=== PATIENT | female | born 1995 | race Caucasian/White ===

== ENCOUNTER → 2019-07-08 13:22 | Outpatient (CLI) | payer MEDICAID, SELFPAY ==
--- NOTE | 2019-07-08 13:28 | US_ITS ---
PROCEDURE: US OB <= 14 WEEKS FETUS CLINICAL INDICATION: dates COMPARISON: No exams were available for comparison FINDINGS: An intrauterine gestational sac is present with a pole with a crown-rump length of 1.19 cm correlating to gestational age of seven weeks 3 days. heart tones are present with an FHR of 151 bpm. Yolk sac is noted. There is a 3.3 cm right ovarian cyst. The uterus is retroverted. IMPRESSION: Live IUP at 7 weeks 3 days Estimated due date by Ultrasound is 02/21/2020 Dictated by: Checo Padilla MD 07/08/2019 18:38 Electronically signed by Checo Padilla MD in [place] 07/08/2019 18:38
== END ==
PROVIDERS: PCP Nurse Practitioner Family; Visit Provider Obstetrics & Gynecology
DX: O26.841 Uterine size-date discrepancy, first trimester (principal)
CPT/HCPCS: 36415; 76801; 84702

== ENCOUNTER → 2019-07-08 14:02 | Outpatient (CLI) | payer MEDICAID, SELFPAY | PROVIDERS: Visit Provider Obstetrics & Gynecology | DX: Z34.90 Encounter for supervision of normal pregnancy, unspecified, unspecified trimester (principal) | CPT/HCPCS: 36415; 84702 ==

== ENCOUNTER → 2019-09-14 09:40 | Outpatient (CLI) | payer MEDICAID, SELFPAY ==
[2019-09-14 10:35] LABS: Basophils % 0.3 % (0.1-2.0); Eosinophils # 0.3 K/mm3 (0.0-0.4); Eosinophils % 1.9 % (0.1-12.0); Hematocrit 38.6 % (37.0-47.0); Hemoglobin 12.9 g/dL (12.2-16.2); Lymphocytes # 2.3 K/mm3 (0.7-4.5); Lymphocytes % 14.8 % (10-50); Mean Corpuscular HGB Conc 33.5 g/dL (31.8-35.4); Mean Corpuscular Hemoglobin 29.1 pg (27.0-31.2); Mean Platelet Volume 9.1 fl (7.4-10.4); Monocytes # 0.9 K/mm3 (0.1-1.0); Monocytes % 5.7 % (1.7-9.3); Neutrophils % 77.3 % (37.0-80.0); Platelet Count 303 K/mm3 (142-424); Red Blood Count 4.43 M/mm3 (4.20-5.40); Red Cell Distribution Width 13.2 % (11.5-17.5); White Blood Count 15.6 K/mm3 (4.8-10.8)
[2019-09-14 10:40] LABS: MANUAL DIFFERENTIAL MANUAL DIFFERENTIAL (MANUAL DIFF)
[2019-09-14 11:12] LABS: Eosinophils % 2 % (0-3); Lymphocytes % 14 % (10-50); Monocytes % 3 % (2-9); Neutrophils % 81 % (42-76); Platelet Estimate Normal; RBC Morphology Normal; Total Cells Counted 100
[2019-09-15 10:29] LABS: HIV Screen 4th Generation wRfx Non Reactive (Non Reactive); Hepatitis B Surface Antigen Negative (Negative); Hepatitis C Antibody <0.1 s/co ratio (0.0-0.9); Rubella Antibodies, IgG 3.62 index (Immune >0.99)
[2019-09-15 14:37] LABS: Rapid Plasma Reagin Ab Titer Non Reactive (NonRea<1:1)
== END ==
PROVIDERS: Visit Provider Obstetrics & Gynecology
DX: Z34.90 Encounter for supervision of normal pregnancy, unspecified, unspecified trimester (principal); Z3A.12 12 weeks gestation of pregnancy
CPT/HCPCS: 36415; 85007; 85025; 86592; 86703; 86762; 86850; 87340; 87380; G0432

== ENCOUNTER → 2019-10-04 09:03 | Outpatient (CLI) | payer MEDICAID, SELFPAY ==
--- NOTE | 2019-10-04 09:04 | US_ITS ---
PROCEDURE: US OB /MATERNAL DETAIL CLINICAL INDICATION: US OB Complete Anatomy scan COMPARISON: US OB <= 14 WEEKS FETUS from 07/08/2019 FINDINGS: There is a single live fetus which is in breech presentation. heart and body motion noted. The cervix is closed and measures 3.6 cm. There is average appearing amount of amniotic fluid. Placenta is posterior and grade 1. Complete survey performed and was unremarkable on the submitted images as in PACS. No discrete anomalies identified on survey imaging by technologist. Active fetus. Three-vessel cord with satisfactory umbilical cord insertion. 4- chamber heart noted. Survey of brain & ventricles Unremarkable. Face and neck survey unremarkable. Diaphragm and chest views unremarkable. Abdomen: Both kidneys noted with minimal pyelectasis at 4 mm bilaterally.. Stomach noted and satisfactory. Spine: Survey of the spine satisfactory with no anomalies identified nor imaged. Both arms and legs noted. Amniotic Fluid: Adequate. Maternal adnexa: No significant findings. Measurements: Average ultrasound age 19weeks 6days. Gestational Age 20 weeks 0 days Estimated due date by ultrasound age 0702/22/2020. Estimated weight 340g BPD = 19weeks 2days OFD = 20 weeks 4 days HC = 19weeks 2days AC = 20weeks 5days FL = 20weeks 1day Growth Percentile= 58% Heart Rate = 152bpm Cerebellum = 20weeks 4days Humerus = 20weeks 2days HC/AC is 1.07 CI is 0.72 FL/BPD is 0.74 FL/AC is 0.21 IMPRESSION: There is a single live fetus which is in breech presentation. heart body motion noted. All parameters correlate with no obvious anomalies. Average ultrasound age is 19 weeks 6 days. Please see above for details. There is mild bilateral pyelectasis is of the collecting systems. This is nonspecific and may represent an incidental finding. Follow-up may confirm stability. Dictated by: Checo Padilla MD 10/04/2019 14:35 Electronically signed by Checo Padilla MD in [place] 10/04/2019 14:35
== END ==
PROVIDERS: PCP Nurse Practitioner Family; Visit Provider Obstetrics & Gynecology
DX: Z36.0 Encounter for antenatal screening for chromosomal anomalies (principal)
CPT/HCPCS: 76811

== ENCOUNTER → 2019-11-29 16:21 | Outpatient (CLI) | payer MEDICAID, SELFPAY ==
[2019-11-29 17:12] LABS: Barbiturates Screen,Urine Negative ng/ml (<200)
[2019-11-29 17:13] LABS: Benzodiazepines Screen,Urine Negative ng/ml (<200)
[2019-11-29 17:14] LABS: Amphetamine/Metha Screen,Urine Negative ng/ml (<1000); Methadone Screen,Urine Negative ng/ml (<300)
[2019-11-29 17:15] LABS: Cannabinoid Screen,Urine Negative ng/ml (<50)
[2019-11-29 17:16] LABS: Cocaine Screen,Urine Negative ng/ml (<300); Opiate Screen,Urine Negative ng/ml (<300)
[2019-11-29 17:17] LABS: Phencyclidine Screen,Urine Negative ng/ml (<25)
== END ==
PROVIDERS: Visit Provider Obstetrics & Gynecology
DX: Z34.90 Encounter for supervision of normal pregnancy, unspecified, unspecified trimester (principal)
CPT/HCPCS: 80305

== ENCOUNTER → 2019-12-01 12:58 | Outpatient (CLI) | payer MEDICAID, SELFPAY ==
--- NOTE | 2019-12-01 12:58 | US_ITS ---
PROCEDURE: US OB FOLLOW UP CLINICAL INDICATION: Q62.0 Follow-up pyelectasis COMPARISON: US OB /MATERNAL DETAIL from 10/04/2019 FINDINGS: There is a single live fetus present in cephalic presentation. Cervix is closed and measures 3.5 cm transabdominal. The placenta is posterior and grade 1-2. OLGA 16 cm. Average ultrasound age is 28 weeks and 2 days with an estimated weight 1191 g which is 34 percentile. BPD 28 weeks 2 days, OFD 28 weeks 2 days, HC 28 weeks 0 days, AC 28 weeks 2 days, FL 28 weeks 2 days. There is minimal pyelectasis with the renal collecting system measuring 3 mm on each side. This is not significantly changed. IMPRESSION: Live IUP at 28 weeks 2 days with normal amniotic fluid index of 16 cm. All parameters correlate. There remains minimal pyelectasis not significantly changed. The placenta is posterior and grade 1-2. Dictated by: Checo Padilla MD 12/01/2019 16:57 Electronically signed by Checo Padilla MD in [place] 12/01/2019 16:57
== END ==
PROVIDERS: PCP Nurse Practitioner Family; Visit Provider Obstetrics & Gynecology
DX: O99.89 Other specified diseases and conditions complicating pregnancy, childbirth and the puerperium (principal); N13.30 Unspecified hydronephrosis; Z3A.28 28 weeks gestation of pregnancy
CPT/HCPCS: 76816

== ENCOUNTER → 2020-01-17 14:48 | Outpatient (CLI) | payer MEDICAID, SELFPAY | PROVIDERS: Visit Provider Obstetrics & Gynecology | DX: Z34.90 Encounter for supervision of normal pregnancy, unspecified, unspecified trimester (principal) | CPT/HCPCS: 86403 ==

== ENCOUNTER 2020-01-24 14:47 | Outpatient (CLI) | payer MEDICAID, SELFPAY ==
[2020-01-24 14:54] VITALS: BMI 33.0
[2020-01-24 15:09] VITALS: BP 139/85; PULSE 135; RESP 20; TEMP 37.1; O2SAT 97; BMI 33.0
[2020-01-24 15:12] LABS: Microscopic, Urine URINE MICROSCOPIC (MICROSCOPIC)
[2020-01-24 15:35] LABS: Appearance,Urine CLEAR (Clear); Bilirubin,Urine Negative (Negative); Blood, Urine 3+ (Negative); Color,Urine YELLOW (Yellow); Glucose,Urine (UA) Negative (Negative); Ketones,Urine TRACE (Negative); Leukocyte Esterase,Urine 2+ (Negative); Nitrate,Urine Negative (Negative); PH,Urine 7.5 (5.0-8.5); Protein,Urine TRACE (Negative)
[2020-01-24 18:43] LABS: Barbiturates Screen,Urine Negative ng/ml (<200); Benzodiazepines Screen,Urine Negative ng/ml (<200)
[2020-01-24 18:44] LABS: Amphetamine/Metha Screen,Urine Negative ng/ml (<1000)
[2020-01-24 18:45] LABS: Cannabinoid Screen,Urine Negative ng/ml (<50); Cocaine Screen,Urine Negative ng/ml (<300)
[2020-01-24 18:46] LABS: Methadone Screen,Urine Negative ng/ml (<300); Opiate Screen,Urine Negative ng/ml (<300)
[2020-01-24 18:47] LABS: Phencyclidine Screen,Urine Negative ng/ml (<25)
[2020-01-24 19:12] LABS: RBC,Urine Occasional #/hpf (0-3)
[2020-01-24 19:13] LABS: Bacteria,Urine 1+ /lpf
== END 2020-01-24 16:25 | disposition home or self-care (01) ==
LOC: OBOUT 14:48 → OB 14:49
PROVIDERS: PCP Nurse Practitioner Family; Visit Provider Obstetrics & Gynecology
DX: Z34.90 Encounter for supervision of normal pregnancy, unspecified, unspecified trimester (principal)
CPT/HCPCS: 59025; 80305; 81001; 87086; 96365; G0463

== ENCOUNTER 2020-02-15 08:58 | Outpatient (CLI) | payer MEDICAID, SELFPAY ==
[2020-02-15 09:14] VITALS: BMI 33.9
[2020-02-15 09:23] LABS: Microscopic, Urine URINE MICROSCOPIC (MICROSCOPIC)
[2020-02-15 09:27] LABS: Appearance,Urine CLEAR (Clear); Bilirubin,Urine Negative (Negative); Blood, Urine Negative (Negative); Color,Urine YELLOW (Yellow); Glucose,Urine (UA) Negative (Negative); Ketones,Urine Negative (Negative); Leukocyte Esterase,Urine 2+ (Negative); Nitrate,Urine Negative (Negative); Protein,Urine Negative (Negative); Specific Gravity, Urine 1.015 (1.005-1.030)
[2020-02-15 09:34] VITALS: BP 128/75; PULSE 104; RESP 18; TEMP 36.6; O2SAT 97; BMI 33.9
[2020-02-15 09:36] LABS: Amphetamine/Metha Screen,Urine Negative ng/ml (<1000)
[2020-02-15 09:37] LABS: Barbiturates Screen,Urine Negative ng/ml (<200)
[2020-02-15 09:38] LABS: Benzodiazepines Screen,Urine Negative ng/ml (<200); Cannabinoid Screen,Urine Negative ng/ml (<50)
[2020-02-15 09:39] LABS: Bacteria,Urine 2+ /lpf; Cocaine Screen,Urine Negative ng/ml (<300)
[2020-02-15 09:40] LABS: Methadone Screen,Urine Negative ng/ml (<300); Opiate Screen,Urine Negative ng/ml (<300)
[2020-02-15 09:41] LABS: Phencyclidine Screen,Urine Negative ng/ml (<25)
== END 2020-02-15 12:00 | disposition home or self-care (01) ==
LOC: OBOUT 08:59 → OB 09:00
PROVIDERS: Nurse Practitioner Obstetrics & Gynecology; Visit Provider Obstetrics & Gynecology
DX: O26.893 Other specified pregnancy related conditions, third trimester (principal); Z3A.39 39 weeks gestation of pregnancy; M54.5 Low back pain; R10.9 Unspecified abdominal pain
CPT/HCPCS: 59025; 80305; 81001; 87086; 96365; G0463; J0595

== ENCOUNTER 2020-02-16 04:14 | Inpatient (IN) | payer MEDICAID, SELFPAY ==
[2020-02-16 04:22] VITALS: BMI 30.1
[2020-02-16 04:28] VITALS: BMI 30.1
[2020-02-16 04:37] LABS: Basophils # 0.1 K/mm3 (0-0.2); Basophils % 0.3 % (0.1-2.0); Eosinophils # 0.2 K/mm3 (0.0-0.4); Eosinophils % 0.7 % (0.1-12.0); Hematocrit 35.9 % (37.0-47.0); Hemoglobin 11.9 g/dL (12.2-16.2); Lymphocytes # 2.9 K/mm3 (0.7-4.5); Lymphocytes % 12.5 % (10-50); Mean Corpuscular HGB Conc 33.3 g/dL (31.8-35.4); Mean Corpuscular Hemoglobin 28.8 pg (27.0-31.2); Mean Corpuscular Volume 86.4 fl (81-99); Monocytes # 1.2 K/mm3 (0.1-1.0); Monocytes % 5.4 % (1.7-9.3); Neutrophils # 18.6 K/mm3 (1.8-7.8); Platelet Count 327 K/mm3 (142-424); Red Blood Count 4.15 M/mm3 (4.20-5.40); Red Cell Distribution Width 13.5 % (11.5-17.5)
[2020-02-16 04:38] LABS: MANUAL DIFFERENTIAL MANUAL DIFFERENTIAL (MANUAL DIFF)
[2020-02-16 04:55] LABS: Amphetamine/Metha Screen,Urine Negative ng/ml (<1000); Barbiturates Screen,Urine Negative ng/ml (<200)
[2020-02-16 04:56] LABS: Benzodiazepines Screen,Urine Negative ng/ml (<200)
[2020-02-16 04:57] LABS: Cannabinoid Screen,Urine Negative ng/ml (<50); Cocaine Screen,Urine Negative ng/ml (<300)
[2020-02-16 04:58] LABS: Methadone Screen,Urine Negative ng/ml (<300)
[2020-02-16 04:59] LABS: Opiate Screen,Urine Negative ng/ml (<300); Phencyclidine Screen,Urine Negative ng/ml (<25)
[2020-02-16 05:44] LABS: Lymphocytes % 11 % (10-50); Neutrophils % 87 % (42-76); Platelet Estimate Normal; Stomatocytes 1+; Total Cells Counted 100
[2020-02-16 05:53] LABS: Coronavirus 19 IgG Antibody Negative (Negative); Coronavirus 19 IgM Antibody Negative (Negative)
--- NOTE | 2020-02-16 06:09 | HMH.DN ---
- Delivery Note Delivery Date:: 02/16/20 Delivery Time:: 05:41 Anesthesia Type: None Was labor medically induced?: No Induction method: none Gestational age (weeks): 39 delivered prior to 39 weeks?: No Justification for early elective delivery:: Active Labor Infant Gender: Male at 1 minute: 7 at 5 minutes: 9 Delivery Procedure:: She is a 24-year-old 3 para 2 at 39 and 2 weeks gestational age. She came in active labor and was found to be 9 cm dilated. She rapidly progressed to full dilation and delivered spontaneously a liveborn male child at 5:41 AM on the morning of February 16, 2020. On deliver the head it was noted that there was a nuchal cord. This was reduced followed by deliver the anterior shoulder and the rest the infant's body atraumatically. The baby was vigorous and cried spontaneously. The oropharynx and nasopharynx were bulb suction. The cord was then doubly clamped and cut after 1 minute and the infant was placed on the mother's abdomen for further care. The nurses assigned Apgars of 7 at 1 minute and 9 at 5 minutes. We then obtained cord blood as well as cord pH. She received IV oxytocin using gentle traction on the cord and countertraction the fundus I was able to easily deliver the placenta intact. It had a normal three-vessel cord. She had a small right labial tear just below the clitoris and I infiltrated the area with Xylocaine. I then reapproximated the labia with 3-0 Vicryl Rapide suture in interrupted fashion. She has a positive blood, she is rubella immune and was group B streptococcus negative. She plans to breast-feed. Estimated blood loss was approximately 400 cc. Laceration:: labial Placental Delivery Description: Spontaneous
[2020-02-16 06:13] LABS: Cord Blood PH 7.36 (7.35-7.45)
[2020-02-16 07:36] VITALS: BP 136/87; PULSE 89; RESP 18; TEMP 36.7; O2SAT 97
[2020-02-16 12:00] VITALS: BP 126/83; PULSE 92; RESP 18; TEMP 36.9; O2SAT 97
[2020-02-16 16:05] VITALS: BP 110/71; PULSE 95; RESP 116; TEMP 36.9; O2SAT 98
[2020-02-16 20:30] VITALS: BP 124/77; PULSE 91; RESP 18; TEMP 37.1; O2SAT 99
[2020-02-16 23:45] VITALS: BP 123/77; PULSE 85; RESP 18; TEMP 37.2; O2SAT 96
[2020-02-17 04:00] VITALS: BP 123/77; PULSE 84; RESP 18; TEMP 36.6; O2SAT 96
[2020-02-17 07:28] LABS: Hematocrit 28.5 % (37.0-47.0); Hemoglobin 9.4 g/dL (12.2-16.2)
[2020-02-17 08:00] VITALS: BP 118/74; PULSE 84; RESP 18; TEMP 36.7; O2SAT 97
--- NOTE | 2020-02-17 09:37 | HMH.DCSUM ---
General - General Admission date:: 02/16/20 Discharge date: 02/17/20 HPI HPI: Presented in active labor with advanced dilation Precipitous vaginal delivery, uncomplicated course uneventful Tolerating regular diet, ambulating and voiding without difficulty Lochia appropriate; asymptomatic with mild anemia following delivery Desires discharge home on PPD #1 Hospital Course Rhogam Administration: Not Indicated Objective Vital signs: Temp Pulse Resp BP Pulse Ox 97.9 F 84 18 123/77 96 02/17/20 04:00 02/17/20 04:00 02/17/20 04:00 02/17/20 04:00 02/17/20 04:00 Narrative: CONSTITUTIONAL: no acute distress HEENT: mucous membranes moist PULMONARY: breathing unlabored without audible wheezes CV: no tachycardia or visible JVD; normal LE peripheral pulses ABD: soft, NT/ND, no guarding : fundus firm at/below umbilicus SKIN: no visible rash or lesions EXT: 1+ edema LEs NEURO: alert/oriented, no altered mental status PSYCH: appropriate mood and demeanor without anxiety/depression Results Labs on day of discharge: Labs from last 24 hours 02/17/20 07:05 Hgb 9.4 L Hct 28.5 L DS: Diagnosis - Discharge Diagnosis (1) Normal delivery at term Status: Acute (2) pyelectasis Status: Acute (3) Tobacco smoking affecting Status: Acute Discharge Plan - Patient Discharge Instructions ACTIVITY: Continue current activity DIET: regular diet Additional Instructions: NO HEAVY LIFTING OR STRENUOUS ACTIVITY NOTHING IN VAGINA FOR 6 WEEKS Patient Instructions: DI for Hemorrhage, Depression, DI for Labor and Delivery, Vaginal , Post Discharge Instructions - Follow up Plan Disposition: Home, Self-Group Home Medications: Home Medications Medication Instructions Recorded Confirmed Type pediatric multivitamin no.76 1 tab PO DAILY 09/14/19 02/16/20 History NIFEdipine [Procardia] 20 mg PO QID 02/16/20 02/16/20 History Ibuprofen [Motrin 400mg 800 mg PO Q6HP PRN #30 tab 02/17/20 Rx tablet] Oxycodone HCl [OxyIR 5mg tablet] 5 mg PO Q4HP PRN #20 tablet 02/17/20 Rx Prescriptions/Medication Reconciliation: New Ibuprofen [Motrin 400mg tablet] 800 mg PO Q6HP PRN #30 tab PRN Reason: Mild To Moderate Pain Oxycodone HCl [OxyIR 5mg tablet] 5 mg PO Q4HP PRN #20 tablet PRN Reason: Moderate Pain Continued pediatric multivitamin no.76 1 tab PO DAILY NIFEdipine [Procardia] 20 mg PO QID - Problem Reconciliation Problems Reviewed?: Yes
== END 2020-02-17 14:30 | disposition home or self-care (01) | DRG 807 ==
LOC: OBOUT 04:15 → OB 04:15
PROVIDERS: Admitting Provider Nurse Practitioner Obstetrics & Gynecology; PCP Nurse Practitioner Family; Visit Provider Obstetrics & Gynecology
DX: O69.81X0 Labor and delivery complicated by cord around neck, without compression, not applicable or unspecified (principal); Z37.0 Single live birth; Z3A.39 39 weeks gestation of pregnancy; O70.0 First degree perineal laceration during delivery
CPT/HCPCS: 59409; 36415; 59025; 80305; 81001; 82800; 85007; 85014; 85018; 85025; 86328; 86850; 87086; 94761; 96365; G0463; J0595; J2405

== ENCOUNTER → 2020-07-05 12:21 | Outpatient (CLI) | payer MEDICAID, SELFPAY ==
[2020-07-05 13:08] LABS: Basophils # 0.1 K/mm3 (0-0.2); Basophils % 0.5 % (0.1-2.0); Eosinophils # 0.3 K/mm3 (0.0-0.4); Eosinophils % 2.7 % (0.1-12.0); Hematocrit 44.2 % (37.0-47.0); Lymphocytes # 2.2 K/mm3 (0.7-4.5); Lymphocytes % 20.5 % (10-50); Mean Corpuscular HGB Conc 31.7 g/dL (31.8-35.4); Mean Corpuscular Hemoglobin 27.9 pg (27.0-31.2); Mean Corpuscular Volume 88.2 fl (81-99); Mean Platelet Volume 8.4 fl (7.4-10.4); Monocytes # 0.5 K/mm3 (0.1-1.0); Monocytes % 5.1 % (1.7-9.3); Neutrophils # 7.6 K/mm3 (1.8-7.8); Neutrophils % 71.2 % (37.0-80.0); Platelet Count 345 K/mm3 (142-424); Red Blood Count 5.01 M/mm3 (4.20-5.40); Red Cell Distribution Width 13.8 % (11.5-17.5); White Blood Count 10.6 K/mm3 (4.8-10.8)
== END ==
PROVIDERS: Visit Provider Obstetrics & Gynecology
DX: N92.6 Irregular menstruation, unspecified (principal)
CPT/HCPCS: 36415; 85025

== ENCOUNTER 2022-09-13 08:03 | Emergency (ER) | payer MEDICAID, SELFPAY ==
[2022-09-13 08:05] VITALS: BP 138/89; PULSE 114; RESP 17; TEMP 37; O2SAT 97; BMI 32.2
[2022-09-13 08:11] VITALS: BP 138/89; PULSE 117; RESP 18; O2SAT 96
[2022-09-13 08:12] VITALS: BMI 32.2
--- NOTE | 2022-09-13 08:12 | XR_ITS ---
PROCEDURE INFORMATION: Exam: XR Right Wrist Exam date and time: 09/13/2022 8:18 AM Age: 26 years old Clinical indication: Pain; Hand; Right; Additional info: Injury TECHNIQUE: Imaging protocol: Radiologic exam of the Right wrist. Views: 3 or more views. COMPARISON: CR XR HAND RT MIN 3V 09/13/2022 8:15 AM FINDINGS: Bones/joints: Comminuted displaced fracture of the neck of the 5th metacarpal.. Soft tissues: Soft tissue swelling along the ulnar aspect of the hand. IMPRESSION: 1. Comminuted displaced fracture of the neck of the 5th metacarpal.. 2. Soft tissue swelling along the ulnar aspect of the hand.
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
--- NOTE | 2022-09-13 08:16 | PC.NURSE ---
RADIOLOGY NOTIFIED OF XR ORDERS
--- NOTE | 2022-09-13 08:19 | PC.NURSE ---
DR GOMEZ AT BEDSIDE FOR EVALUATION
--- NOTE | 2022-09-13 08:24 | PC.NURSE ---
PT TO XR
--- NOTE | 2022-09-13 08:29 | PC.NURSE ---
PT RETURNED FROM XR
[2022-09-13 08:30] VITALS: BP 125/78; PULSE 132; RESP 18; O2SAT 97
[2022-09-13 08:56] VITALS: BP 115/70; PULSE 98; RESP 18; O2SAT 98
[2022-09-13 09:00] VITALS: BP 115/70; PULSE 108; RESP 18; TEMP 36.8; O2SAT 98
== END 2022-09-13 09:00 | disposition home or self-care (01) ==
PROVIDERS: Emergency Provider Student in an Organized Health Care Education/Training Program; PCP Nurse Practitioner Family
DX: S62.316A Displaced fracture of base of fifth metacarpal bone, right hand, initial encounter for closed fracture (principal); Y04.0XXA Assault by unarmed brawl or fight, initial encounter
CPT/HCPCS: 29125; 73110; 73130; 99284

== ENCOUNTER → 2022-09-30 11:17 | Outpatient (CLI) | payer MEDICAID, SELFPAY ==
[2022-09-30 12:34] LABS: HCG,Quantitative < 2 mIU/ml (0-5.42)
[2022-10-01 09:22] LABS: HSV 2 IgG, Type Spec 5.49 index (0.00-0.90)
[2022-10-01 12:25] LABS: Rapid Plasma Reagin Ab Titer Non Reactive (NonRea<1:1)
[2022-10-04 22:58] LABS: HIV Screen 4th Generation wRfx NON REACTIVE; Hep A Ab, IgM NEGATIVE; Hepatitis B Core Antibody IgM NEGATIVE; Hepatitis B Surface Antigen NEGATIVE; Hepatitis C Antibody NON REACTIVE
== END ==
PROVIDERS: PCP Nurse Practitioner Family; Visit Provider Obstetrics & Gynecology
DX: Z32.00 Encounter for pregnancy test, result unknown (principal); Z72.51 High risk heterosexual behavior
CPT/HCPCS: 36415; 80074; 84702; 86593; 86695; 86703; 86790; G0432